=== PATIENT | male | born 1995 | race Caucasian/White ===

== ENCOUNTER 2019-10-30 11:12 | Outpatient (CLI) | payer SELFPAY | END 2019-10-30 11:13 | disposition home or self-care (01) | LOC: COV 11:12 | PROVIDERS: ATTEND Family Medicine | DX: R05 Cough (principal); R50.9 Fever, unspecified; Z20.828 Contact with and (suspected) exposure to other viral communicable diseases | CPT/HCPCS: 81599 ==